=== PATIENT | male | born 1955 | race Caucasian/White ===

== ENCOUNTER → 2020-09-29 | Outpatient (CLI) | payer OTHER ==
--- NOTE | 2020-09-29 12:31 | 2DMMODE ---
[facility] [place] [address] [place] [address] 2 D/M-MODE ECHOCARDIOGRAM Name: MARY CARMEN SUN Room #: REG Jennifer SoteroSotero#: [id number] Admission: 09/29/20 Attend Phys: Reno Perkins MD Discharge: Date of : 59 Report #: [id number] THIS REPORT FOR: cc: Amado Wright MD, Richard MD Park,Misael Mcmanus MD ~ APPROVED REPORT Study performed: 09/29/2020 11:26:41 EXAM: Comprehensive 2D, Doppler, and color-flow Echocardiogram Patient Location: Echo lab Room #: 2 Status: routine BSA: 2.22 HR: 57 bpm BP: 122/84 mmHg Rhythm: NSR Other Information Study Quality: Good Indications Mitral Valve Prolapse Hx: HTN, HLD 2D Dimensions RVDd: 38.43 mm IVSd: 10.22 (7-11mm) LVOT Diam: 23.14 (18-24mm) LVDd: 47.32 mm PWd: 10.95 (7-11mm) Ascending Ao: 38.40 (22-36mm) LVDs: 32.18 (25-40mm) Aortic Root: 32.96 mm Volumes Left Atrial Volume (Systole) Single Plane 4CH: 36.68 mL Single Plane 2CH: 85.82 mL LA ESV Index: 31.00 mL/m2 Aortic Valve AoV Peak Jorge.: 1.35 m/s AO Peak Gr.: 7.29 mmHg LVOT Max P.01 mmHg LVOT Max V: 1.32 m/s SIDNEY Vmax: 4.12 cm2 [facility] [address] [place] [address] 2 D/M-MODE ECHOCARDIOGRAM Name: MARY CARMEN SUN Room #: REG Yenifer#: [id number] Admission: 09/29/20 Attend Phys: Reno Perkins, Discharge: Date of : 59 Report #: [id number] Mitral Valve E/A Ratio: 0.9 MV Decel. Time: 294.87 ms MV E Max Jorge.: 1.07 m/s MV A Jorge.: 1.13 m/s MV PHT: 85.51 ms IVRT: 115.34 ms Pulmonary Valve PV Peak Jorge.: 1.54 m/s PV Peak Gr.: 9.47 mmHg Pulmonary Vein P Vein S: 0.68 m/s P Vein A: 0.32 m/s P Vein D: 0.46 m/s P Vein A Dur.: 129.2 msec P Vein S/D Ratio: 1.48 Tricuspid Valve TR Peak Jorge.: 2.62 m/s RAP Estimate: 5.00 mmHg TR Peak Gr.: 27.45 mmHg PA Pressure: 32.00 mmHg Left Ventricle The left ventricle is normal size. There is normal LV segmental wall motion. Mild basal septal hypertrophy is present. The left ventricular systolic function is normal. LVEF is 55-60%. Mild diastolic dysfunction is present (impaired relaxation pattern). Right Ventricle The right ventricle is normal size. The right ventricular systolic function is normal. Atria The left atrium size is normal. The right atrium size is normal. Aortic Valve The aortic valve is normal in structure, mildly thickened leaflets. Trace aortic regurgitation. There is no aortic valvular stenosis. Mitral Valve There is moderate mitral valve prolapse. Mitral valve leaflets are mildly thickened. Moderate mitral regurgitation. No evidence of mitral valve stenosis. [facility] [email or web address] [address] 2 D/M-MODE ECHOCARDIOGRAM Name: MARY CARMEN SUN Randall Room #: REG Yenifer#: [id number] Admission: 09/29/20 Attend Phys: Reno Perkins, Discharge: Date of : 59 Report #: [id number] Tricuspid Valve The tricuspid valve is normal in structure. Mild tricuspid regurgitation. Estimated PAP 30mmHg. Pulmonic Valve The pulmonary valve is normal in structure. There is no pulmonic valvular regurgitation. Great Vessels The aortic root is normal in size. The ascending aorta is normal in size. IVC is normal in size and collapses >50% with inspiration. Pericardium There is no pericardial effusion. <Conclusion> The left ventricle is normal size. The left ventricular systolic function is normal. Mild diastolic dysfunction is present (impaired relaxation pattern). The right ventricle is normal size. The left atrium size is normal. Trace aortic regurgitation. There is moderate mitral valve prolapse. Mitral valve leaflets are mildly thickened. Moderate mitral regurgitation. Mild tricuspid regurgitation. Estimated PAP 30mmHg. <ELECTRONICALLY SIGNED> By: Misael Vargas MD 09/29/20 1230 29 123 Misael Vargas MD /INF
== END ==
LOC: NUC 11:01
PROVIDERS: ATTEND Internal Medicine Cardiovascular Disease
DX: I08.1 Rheumatic disorders of both mitral and tricuspid valves (principal)

== ENCOUNTER → 2021-12-09 | Outpatient (CLI) | payer OTHER ==
--- NOTE | 2021-12-09 11:55 | 2DMMODE ---
[facility] [place] [place] [address] 2 D/M-MODE ECHOCARDIOGRAM Name: MARY CARMEN SUN Room #: REG Jennifer SoteroDaxSotero#: [id number] Admission: 12/09/21 Attend Phys: Reno Perkins MD Discharge: Date of : 59 Report #: [id number] THIS REPORT FOR: cc: Amado Wright MD, Richard MD Park,Misael Mcmanus MD ~ APPROVED REPORT Study performed: 12/09/2021 10:39:21 EXAM: Comprehensive 2D, Doppler, and color-flow Echocardiogram Patient Location: Out-Patient Room #: 1 Status: routine BSA: 2.22 HR: 67 bpm BP: 136/84 mmHg Rhythm: NSR Other Information Study Quality: Good Indications Mitral Valve Prolapse 2D Dimensions RVDd: 37.62 mm IVSd: 8.53 (7-11mm) LVOT Diam: 23.02 (18-24mm) LVDd: 49.17 mm PWd: 10.01 (7-11mm) Ascending Ao: 35.20 (22-36mm) LVDs: 30.97 (25-40mm) Left Atrium: 37.44 (27-40mm) Aortic Root: 34.62 mm IVC: 15.00 mm Volumes Left Atrial Volume (Systole) Single Plane 4CH: 62.76 mL Single Plane 2CH: 62.94 mL LA ESV Index: 32.00 mL/m2 Aortic Valve AoV Peak Jorge.: 1.32 m/s AO Peak Gr.: 6.92 mmHg LVOT Max P.15 mmHg LVOT Max V: 1.13 m/s SIDNEY Vmax: 3.59 cm2 [facility] [address] [place] [address] 2 D/M-MODE ECHOCARDIOGRAM Name: MARY CARMEN SUN Room #: REG [facility]#: [id number] Admission: 12/09/21 Attend Phys: Reno Perkins, Discharge: Date of : 59 Report #: [id number] Mitral Valve E/A Ratio: 0.8 MV Decel. Time: 305.91 ms MV E Max Jorge.: 0.87 m/s MV A Jorge.: 1.10 m/s MV PHT: 88.71 ms IVRT: 119.95 ms Pulmonary Valve PV Peak Jorge.: 0.81 m/s PV Peak Gr.: 2.62 mmHg Pulmonary Vein P Vein S: 0.53 m/s P Vein A: 0.29 m/s P Vein D: 0.35 m/s P Vein A Dur.: 115.3 msec P Vein S/D Ratio: 1.51 Tricuspid Valve TR Peak Jorge.: 2.50 m/s TR Peak Gr.: 24.91 mmHg PA Pressure: 30.00 mmHg Left Ventricle The left ventricle is normal size. There is normal LV segmental wall motion. There is normal left ventricular wall thickness. The left ventricular systolic function is normal. The left ventricular ejection fraction is within the normal range. LVEF is 55-60%. Grade I - abnormal relaxation pattern. Right Ventricle The right ventricle is normal size. The right ventricular systolic function is normal. Atria The left atrium size is normal. The right atrium size is normal. Aortic Valve The aortic valve is normal in structure. Mild aortic regurgitation. There is no aortic valvular stenosis. Mitral Valve Mitral valve leaflets are thickened, with prolapse of the posterior mitral valve leaflet Moderate mitral regurgitation. No evidence of mitral valve stenosis. Mild prolapse of the posterior mitral valve leaflet. [facility] [address] [place] [address] 2 D/M-MODE ECHOCARDIOGRAM Name: MARY CARMEN SUN Room #: [facility] [id number] Admission: 12/09/21 Attend Phys: Reno Perkins, Discharge: Date of : 59 Report #: [id number] Tricuspid Valve The tricuspid valve is normal in structure. There is trace tricuspid regurgitation. Estimated PAP 30 mmHg. Pulmonic Valve The pulmonary valve is normal in structure. There is no pulmonic valvular regurgitation. Great Vessels The aortic root is normal in size. IVC is normal in size and collapses >50% with inspiration. Pericardium There is no pericardial effusion. <Conclusion> The left ventricle is normal size. There is normal left ventricular wall thickness. The left ventricular systolic function is normal. Grade I - abnormal relaxation pattern. The right ventricle is normal size. The left atrium size is normal. Mild aortic regurgitation. Mitral valve leaflets are thickened, with prolapse of the posterior mitral valve leaflet Moderate mitral regurgitation. There is trace tricuspid regurgitation. Estimated PAP 30 mmHg. <ELECTRONICALLY SIGNED> By: Misael Vargas MD 12/09/21 1154 1154 [id number] Misael Vargas MD /INF
== END ==
LOC: CV 09:37
PROVIDERS: ATTEND Internal Medicine Cardiovascular Disease
DX: I08.0 Rheumatic disorders of both mitral and aortic valves (principal)